=== PATIENT | male | born 1975 | race Caucasian/White ===

== ENCOUNTER 2016-05-28 11:27 | Emergency (ER) | payer MEDICAID ==
[~2016-05-28] VITALS: Ht 172.7 cm; Wt 55.0 kg
[~2016-05-28 11:27] MED LIST: PRED20 PO; VENTAER INH; ZITH250T PO
[2016-05-28 11:36] VITALS: BP 134/83; PULSE 102; RESP 16; TEMP 98.4; O2SAT 100
--- NOTE | 2016-05-28 13:40 | PD ---
HPI Chief Complaint: Injury Time Seen by Provider: 13:00 Travel History International Travel<30 days: No Contact w/Intl Traveler<30days: No Traveled to known affect area: No History of Present Illness HPI 41-year-old male presents to the emergency room for evaluation of left shoulder pain after injuring it 3 weeks ago. Patient states his friend dropped 3 stacked 2X4's on his shoulder. Since then, he said persistent left shoulder pain. He thought it was just a bruise first but is concerned because the pain has continued. Patient cannot localize pain. It is worse with any range of motion of the left shoulder and palpation. Patient states pain is severe in the axilla and the posterior shoulder. Denies clavicle or humeral head pain. He has been taking ibuprofen and applying heat without relief in symptoms. Denies radiation, paresthesias, or neck pain. PFSH Past Medical History Medical History: Denies Significant Hx Diminished Hearing: No Immunizations Current: Yes Tetanus Vaccination: < 5 Years Influenza Vaccination: No Past Surgical History Appendectomy: Yes Neurologic Surgery: Yes (CERVIAL FX REPAIR C2 AND C5) Other Surgery: Yes (Repair of right pneumothorax) Social History Alcohol Use: No Tobacco Use: Yes (1 PPD) Substance Use: No Allergies-Medications (Allergen,Severity, Reaction): Coded Allergies: No Known Allergies (Verified , 05/28/16) Reported Meds & Prescriptions Reported Meds & Active Scripts Active Review of Systems Except as stated in HPI: all other systems reviewed are Neg Physical Exam Narrative GENERAL: Well-nourished, well-developed male in no acute distress. Afebrile. Ambulatory. SKIN: Warm and dry. HEAD: Normocephalic. EYES: No scleral icterus. No injection or drainage. NECK: Supple, trachea midline. No JVD or lymphadenopathy. CARDIOVASCULAR: Regular rate and rhythm without murmurs, gallops, or rubs. RESPIRATORY: Breath sounds equal bilaterally. No accessory muscle use. EXTREMITY: Left shoulder extremity tender to palpation over the scapula. Mild tenderness to palpation of the axilla. Full range of motion in all joints. No edema. Radial, ulnar, and median nerves intact. 2+ radial pulse. Data Data Last Documented VS Vital Signs Date Time Temp Pulse Resp B/P Pulse Ox O2 Delivery O2 Flow Rate FiO2 05/28/16 11:36 98.4 102 16 134/83 100 Orders Shoulder, Complete (>2vws) (05/28/16 ) [facility] Medical Decision Making Medical Screen Exam Complete: Yes Emergency Medical Condition: Yes Medical Record Reviewed: Yes Differential Diagnosis Shoulder Fracture versus contusion versus rib fracture Narrative Course 41-year-old male presents to the emergency room for evaluation of left shoulder pain after having 3 2X4's dropped on him 3 weeks ago. Patient is concerned because of persistence of symptoms. Cannot localize pain. Physical exam is unremarkable. 2+ pulses in radial, ulnar, and median nerves intact. Full range of motion left shoulder with moderate pain. No obvious edema or ecchymosis. No midline tenderness of the cervical spine. Tenderness to palpation of the posterior scapula and axilla. Mild tenderness to palpation of the clavicle. X-ray is negative for acute bony abnormality. Patient likely has contusion/strain due to injury. Discharged with prescriptions for ibuprofen and Robaxin and told to follow up with primary care physician and return for worsening symptoms. He understands and agrees to plan. Diagnosis Primary Impression: Left shoulder strain Qualified Code: S46.912A - Left shoulder strain, initial encounter Referrals: Primary Care Physician Patient Instructions: Contusion in Adults (ED), General Instructions, Muscle Strain (ED) Additional Instructions: Rest and drink plenty of fluids. Take Robaxin as directed, as needed for pain. Take ibuprofen with food as directed, as needed for pain. Apply ice to the affected area for 20 minutes at a time, as needed for pain and swelling. Follow-up with a primary care physician. Return to the emergency room for worsening symptoms. Med/Other Pt SpecificInfo: Prescription(s) given Disposition: 01 DISCHARGE HOME Condition: Stable Aracelis Mcgee May 28, 2016 13:40
--- NOTE | 2016-05-28 13:53 | RADHPO ---
EXAM DATE/TIME: 05/28/2016 13:04 [facility] COMPARISON: No previous studies available for comparison. INDICATIONS : Left shoulder pain, 2x4's fell on patient. MEDICAL HISTORY : None. SURGICAL HISTORY : None. ENCOUNTER: Initial ACUITY: 2 weeks PAIN SCORE: 4/10 LOCATION: Left shoulder FINDINGS: Multiple view examination of the left shoulder demonstrates no evidence of fracture or dislocation. The glenohumeral and acromioclavicular joints are maintained. There is normal range of motion betwee n internal and external rotation. Bony mineralization is normal. CONCLUSION: Normal examination for a patient of this age. Jose Borges MD on May 28, 2016 at 13:33 Board Certified Radiologist. This report was verified electronically.
[2016-05-28] MEDS ORDERED: IBUP800T23 PO (14:01)
[2016-05-28] MEDS ORDERED: ROBA750T PO (14:01)
== END 2016-05-28 14:44 | disposition home or self-care (01) ==
LOC: PHEFT 11:27
DX: S46.912A Strain of unspecified muscle, fascia and tendon at shoulder and upper arm level, left arm, initial encounter (principal); S40.012A Contusion of left shoulder, initial encounter; F17.210 Nicotine dependence, cigarettes, uncomplicated; W20.8XXA Other cause of strike by thrown, projected or falling object, initial encounter
CPT/HCPCS: 73030; 99283